=== PATIENT | female | born 1965 | race Two or more races ===

== ENCOUNTER 2018-11-14 12:32 | Emergency (ER) | payer MEDICAID ==
[~2018-11-14] VITALS: Ht 162.6 cm; Wt 88.5 kg
[2018-11-14] MEDS ORDERED: cloNIDine HCL 0.1 MG TAB ONE (12:40)
[2018-11-14] MEDS ORDERED: cloNIDine HCL 0.1 MG TAB PO ONE (12:45)
[2018-11-14 13:30] VITALS: BP 132/93
== END 2018-11-14 14:33 | disposition home or self-care (01) ==
LOC: ER 12:40
DX: M23.92 Unspecified internal derangement of left knee (principal); I10 Essential (primary) hypertension; Z88.6 Allergy status to analgesic agent; Z91.012 Allergy to eggs
CPT/HCPCS: 73562

== ENCOUNTER 2022-11-18 13:04 | Emergency (ER) | payer MEDICAID ==
[~2022-11-18] VITALS: Ht 165.1 cm; Wt 101.1 kg
[2022-11-18] MEDS ORDERED: HYDROcodone-ACET 10/325MG TAB PO ONE (13:30)
[2022-11-18 13:52] LABS: Basophils # (auto) 0 10 ^3/uL (0-0.2); Basophils % (auto) 0.3 % (0.0-2.0); Eosinophils # (auto) 0 10 ^3/uL (0-0.8); Eosinophils % (auto) 0.3 % (0.0-7.0); Hematocrit 44.9 % (36.0-46.0); Hemoglobin 15.1 g/dL (12.2-16.2); Lymphocytes # (auto) 1.6 10 ^3/uL (0.4-5.4); Lymphocytes % (auto) 11.6 % (10.0-50.0); Mean Corpuscular Hemoglobin 30.9 pg (28.0-32.0); Mean Corpuscular Hgb Conc. 33.6 g/dL (32.0-36.0); Mean Corpuscular Volume 91.9 fL (80.0-100.0); Monocytes # (auto) 1.2 10 ^3/uL (0-1.3); Monocytes % (auto) 8.7 % (0.0-12.0); Neutrophils # (auto) 10.7 10 ^3/uL (1.6-8.6); Neutrophils % (auto) 79.1 % (37.0-80.0); Nucleated Red Blood Cells % 0.1 %; Red Blood Cells 4.89 10^6/uL (4.0-5.20); Red Cell Distribution Width 13.4 % (11.8-14.3); White Blood Cell 13.6 10^3/uL (4.4-10.8)
[2022-11-18 14:04] LABS: Albumin 3.6 g/dL (3.4-5.0); Calcium 9.3 mg/dL (8.5-10.1); Potassium 4.3 mmol/L (3.5-5.1)
[2022-11-18 14:08] LABS: BUN/Creatinine Ratio 17.7; Bilirubin, Total 1.3 mg/dL (0.2-1.0); Total Protein 7.8 g/dL (6.4-8.2)
[2022-11-18 15:10] LABS: Urine Bacteria FEW /hpf (None Seen); Urine Blood Negative /uL (Negative); Urine Hyaline Cast MOD /lpf (0 - 2); Urine Mucus MANY (None Seen); Urine Specific Gravity 1.024 (1.001-1.035); Urine WBC 284 /hpf (0 - 5)
[2022-11-18] MEDS ORDERED: NITR-87 PO (17:26)
[2022-11-18] MEDS ORDERED: HYDR-4902 PO (17:26)
[2022-11-18 17:47] VITALS: BP 136/86
== END 2022-11-18 17:47 | disposition home or self-care (01) ==
LOC: ER 13:06
DX: N39.0 Urinary tract infection, site not specified (principal); C76.2 Malignant neoplasm of abdomen; Z90.49 Acquired absence of other specified parts of digestive tract
CPT/HCPCS: 36415; 74176; 80053; 81001; 81025; 83690; 85025

== ENCOUNTER 2023-09-07 15:18 | Emergency (ER) | payer MEDICAID ==
[~2023-09-07] VITALS: Ht 165.1 cm; Wt 102.2 kg
[~2023-09-07 15:18] MED LIST: HYDR-4902 PO; NITR-87 PO
[2023-09-07 16:28] VITALS: BP 149/105; PULSE 100; RESP 18; TEMP 97.7; O2SAT 96
[2023-09-07] MEDS ORDERED: KETOROLAC TROMETH 60MG/2ML VIAL IM ONE (16:45)
[2023-09-07] MEDS ORDERED: IBUP-1456 PO (17:07)
== END 2023-09-07 17:20 | disposition home or self-care (01) ==
LOC: ER 15:18
DX: S83.8X1A Sprain of other specified parts of right knee, initial encounter (principal); I10 Essential (primary) hypertension; Z98.890 Other specified postprocedural states; Z88.8 Allergy status to other drugs, medicaments and biological substances; Z79.899 Other long term (current) drug therapy; X50.1XXA Overexertion from prolonged static or awkward postures, initial encounter; Y93.89 Activity, other specified; Y92.89 Other specified places as the place of occurrence of the external cause; Y99.8 Other external cause status
CPT/HCPCS: 73562; 96372; 99283; J1885